=== PATIENT | female | born 1955 | race African-American/Black ===

== ENCOUNTER → 2020-11-28 10:01 | Outpatient (CLI) | payer SELFPAY ==
--- NOTE | ~2020-11-28 | MM_ITS ---
EXAMINATION: MM screening [facility] w marquez HISTORY: Screening mammogram TECHNIQUE: Craniocaudal and mediolateral oblique 3-D tomosynthesis images were obtained and synthetic 2-D images were generated. CAD analysis was submitted and interpreted. COMPARISON: No prior mammogram is available for comparison at this institution. BREAST PARENCHYMAL COMPOSITION: The breasts are heterogeneously dense, which may obscure small masses . FINDINGS: RIGHT BREAST: There is no evidence of suspicious mass, calcification, or architectural distortion to suggest malignancy. LEFT BREAST: There is focal asymmetry in the posterior third of the upper breast at the 12:00 locatio n. IMPRESSION: 1. Left breast focal asymmetry which may represent the patient's baseline however no comparison is cu rrently available. 2. Comparison with prior mammograms is necessary. BI-RADS Category 0: Incomplete: Needs comparison with prior mammograms. Reviewed, dictated and finalized at location A. IMPRESSION: 1. Left breast focal asymmetry which may represent the patient's baseline howev er no comparison is currently available. 2. Comparison with prior mammograms is necessary. BI-RADS Category 0: Incomplete: Needs comparison with prior mammograms.
--- NOTE | ~2020-11-28 | DEXA_ITS ---
Bone Density Report Name: Katharina Chinchilla Age: 65 Sex: Female Ethnicity: Black Date of : 1955 Indication: osteopenia; parental hip fracture; height loss; hysterectomy; postmenopausal Referring Provider: Bianca Bell Study: Bone densitometry was performed. Exam Date: November 28, 2020 Accession number: [id number] Bone Density: Region BMD T-score Z-score Classification AP Spine (L1-L4) 0.797 -2.3 -1.4 Osteopenia Femoral Neck (Left) 0.768 -0.7 -0.1 Normal Total Hip (Left) 0.860 -0.7 -0.2 Normal Femoral Neck (Right) 0.749 -0.9 -0.2 Normal Total Hip (Right) 0.818 -1.0 -0.5 Normal Total Hip Mean 0.839 -0.9 -0.4 Normal World Health Organization criteria for BMD impression classify patients as: Normal (T-score at or above -1.0), Osteopenia (T-score between -1.0 and -2.5), or Osteoporosis (T-score at or below -2.5). 10-year Fracture Risk(1): Major Osteoporotic Fracture 6.7% Hip Fracture 0.4% Reported Risk Factors: [place] (Black), Neck BMD=0.749, BMI=25.8, parental fracture, smoking (1) FRAX(R) Version 3.08. Fracture probability calculated for an untreated patient. Fracture probability may be lower if the patient has received treatment. Previous Exams: Region Exam Age BMD T-score BMD Change BMD Change Date g/cm2 vs Baseline vs Previous AP Spine(L1-L4) 11/28/2020 65 0.797 -2.3 -0.093* 0.004 08/06/2018 63 0.794 -2.3 -0.096* -0.096* 10/01/2013 58 0.890 -1.4 Total Hip(Left) 11/28/2020 65 0.860 -0.7 -0.150* -0.055* 08/06/2018 63 0.915 -0.2 -0.095* -0.095* 10/01/2013 58 1.010 0.6 Total Hip(Right) 11/28/2020 65 0.818 -1.0 -0.109* -0.026 08/06/2018 63 0.844 -0.8 -0.083* -0.083* 10/01/2013 58 0.927 -0.1 *Denotes significance at 95% confidence level, LSC for AP Spine = 0.022 g/cm2, LSC for Total Hip = 0.027 g/cm2 Clinical Information Provided by Patient: Parent has had a hip fracture Smokes Has used the following medications: Vitamin D, MTV Has the following medical conditions: Hysterectomy Patient maximum height was 67 Menopause Age: 42 No regular weight bearing exercise Drinks caffeinated beverages Onset of menses at age 16 Number of children 1 Impression: The patient has low bone mass, based on the Total Spine T-score. The patient has an estimated ten-year risk of hip fracture of 0.4% and an estimated ten-y
== END ==
PROVIDERS: Visit Provider Student in an Organized Health Care Education/Training Program
DX: Z12.31 Encounter for screening mammogram for malignant neoplasm of breast (principal); Z78.0 Asymptomatic menopausal state; M85.88 Other specified disorders of bone density and structure, other site; R92.8 Other abnormal and inconclusive findings on diagnostic imaging of breast
CPT/HCPCS: 77063; 77067; 77080

== ENCOUNTER → 2021-03-07 07:54 | Outpatient (CLI) | payer SELFPAY ==
--- NOTE | ~2021-03-07 | MM_ITS ---
EXAMINATION: MM diagnostic [facility] w marquez HISTORY: Left breast focal asymmetry on screening mammogram TECHNIQUE: Additional 3-D tomosynthesis images of the left breast were performed and synthetic 2-D im ages were generated. CAD analysis was submitted and interpreted. COMPARISON: 11/28/2020, 06/04/2018, 04/05/2015 BREAST PARENCHYMAL COMPOSITION: The breasts are heterogeneously dense, which may obscure small masses . FINDINGS: There is a return to baseline fibroglandular appearance with spot compression of the left b reast in the area questioned on screening mammogram. IMPRESSION: 1. No mammographic evidence of malignancy. 2. Recommend routine screening mammography in one year. BI-RADS Category 1: Negative Reviewed, dictated and finalized at location A.
== END ==
PROVIDERS: Visit Provider Student in an Organized Health Care Education/Training Program
DX: R92.8 Other abnormal and inconclusive findings on diagnostic imaging of breast (principal)
CPT/HCPCS: 77061; 77065; G0279

== ENCOUNTER 2022-07-27 00:24 | Day surgery (SDC) | payer MEDICARE, OTHER, SELFPAY ==
[2022-07-16 14:13] VITALS: BMI 25.2
--- NOTE | 2022-07-26 14:55 | PM.HPGS ---
History of Present Illness History of Present Illness Consent: Risks, benefits, and alternatives have been discussed and questions answered. Patient agrees to proceed with procedure. Chief complaint: neoplasm screening Narrative: Katahrina Chinchilla is a 67 year old female was referred for colon cancer screening. Twelve years ago she had a polyp removed PMFSH Past Medical History Medical History History of vaginal delivery Surgical History Surgical History History of hysterectomy History of tubal ligation Family History Family History Sibling Hypertension Patient's brother is in good health Patient's brother is Diabetes mellitus Family history of sickle cell anemia, Onset Age: 45 Father Family history of diabetes mellitus in first degree relative Diabetes mellitus Social History Social History Social History: Single Smoking packs per day: 0.5 Smoking cigarettes per day: 10.0 Years smoked: 40 Smoking pack-years: 20.00 Smoking status: Current some day smoker Tobacco type: cigarettes Second hand tobacco smoke exposure: No Alcohol intake: current Alcohol use details: SOCIAL DRINKER Substance use: never Substance use type: does not use Living arrangements: alone Occupation/Education: retired Gender identity (if verbalized by the patient): Female Sexual Orientation (if Verbalized by the Patient): Straight or Heterosexual Spiritual care concerns: No Meds Home Medications and Allergies Home Medications Medication Instructions Recorded Confirmed Type lxvbhoyzqxaa-vwynkmjb-ezralak-folic 1 tablet PO DAILY 07/24/19 07/16/22 History acid 400 mcg-vit K1 20 mcg tablet (One-A-Day Women's 50 Plus) ascorbic acid (vitamin C) 500 mg 500 mg PO DAILY 07/29/20 07/16/22 History chewable tablet cholecalciferol (vitamin D3) 25 25 mcg PO DAILY 07/29/20 07/16/22 History mcg (1,000 unit) capsule Allergies Allergy/AdvReac Type Severity Reaction Status Date / Time No Known Allergies Allergy Verified 07/27/22 08:57 Assessment and Plan Assessment and plan (1) Colon cancer screening: Code(s): Z12.11 - Encounter for screening for malignant neoplasm of colon Status: Acute Assessment and Plan: Colonoscopy with possible biopsy or polypectomy or cautery or injection of substances.
[2022-07-27 09:00] VITALS: BP 142/92; PULSE 102; RESP 18; TEMP 36.6; O2SAT 99
[2022-07-27] MEDS: LACTATED RINGERS 1,000 ML 150 ML IV CONT (09:10)
--- NOTE | 2022-07-27 09:11 | SUR.PREOP ---
DR HENDERSON MADE AWARE PT ATE OATMEAL AT 0600 ON 07/26/22 AND A [employer] SANDWICH AT 1400. PT TOOK BOWEL PREP INSTRUCTED AND HAD NOTHING TO EAT OR DRINK SINCE 1900 ON 07/26/22. PT'S BOWELS ARE LIQUID YELLOW. NO NEW ORDERS RECEIVED. DR HENDERSON TO SEE PT.
--- NOTE | 2022-07-27 09:28 | WPDANESEPPF ---
Anes - Initial Pre Proc Eval Procedure: Operation Date: 07/27/22 10:00 Proposed Procedures p Screening Colonoscopy - Nathan Melendez MD Date/Time: 07/27/22 09:28 Surgeon: Nathan Melendez MD Pre Op Diagnosis: neoplasm screening Patient Data Age: 67 Gender: F Height: 1.7 m Weight: 74.3 kg Last Vital Signs Temp 36.6 C 07/27/22 09:00 Pulse 102 H 07/27/22 09:00 Resp 18 07/27/22 09:00 BP 142/92 H 07/27/22 09:00 Pulse Ox 99 07/27/22 09:00 O2 Del Method Room Air 07/27/22 09:00 Allergies Allergy/AdvReac Type Severity Reaction Status Date / Time No Known Allergies Allergy Verified 07/27/22 08:57 Home Medications Medication Instructions Recorded Confirmed Type lmngpypksqnw-nloselfu-tcokbcj-folic 1 tablet PO DAILY 07/24/19 07/16/22 History acid 400 mcg-vit K1 20 mcg tablet (One-A-Day Women's 50 Plus) ascorbic acid (vitamin C) 500 mg 500 mg PO DAILY 07/29/20 07/16/22 History chewable tablet cholecalciferol (vitamin D3) 25 25 mcg PO DAILY 07/29/20 07/16/22 History mcg (1,000 unit) capsule Patient hx anesthesia problems: none Family hx anesthesia problems: none Results Review: All pre-operative results and documents have been reviewed as part of the pre-operative evaluation. [facility] Past Medical History Medical History History of vaginal delivery Hypertension Surgical History Surgical History History of hysterectomy History of tubal ligation Family History Family History Sibling Hypertension Patient's brother is in good health Patient's brother is Diabetes mellitus Family history of sickle cell anemia, Onset Age: 45 Father Family history of diabetes mellitus in first degree relative Diabetes mellitus Social History Social History Social History: Single Smoking packs per day: 0.5 Smoking cigarettes per day: 10.0 Years smoked: 40 Smoking pack-years: 20.00 Smoking status: Current some day smoker Tobacco type: cigarettes Second hand tobacco smoke exposure: No Alcohol intake: current Alcohol use details: SOCIAL DRINKER Substance use: never Substance use type: does not use Living arrangements: alone Occupation/Education: retired Gender identity (if verbalized by the patient): Female Sexual Orientation (if Verbalized by the Patient): Straight or Heterosexual Spiritual care concerns: No Anes - Eval Final PreProcedure Day of Procedure 07/27/22 09:28 Patient weight: normal Heart: regular rate and rhythm Lungs: decreased breath sounds Airway: Mallampati scale class II Neurological: alert and oriented Last oral intake: >/= 8 hours ASA classification: III Emergent: no Anesthetic plan: proceed Anesthesia type and monitoring: general GIVS and standard monitoring Results Review: All pre-operative results and documents have been reviewed as part of the pre-operative evaluation. Informed Consent: The patient's anesthetic plan and its attendant risks and benefits were discussed with the patient/family/POA. Questions were solicited and answers provided to the satisfaction of the patient/family/POA.
[2022-07-27 10:23] VITALS: BP 137/80; PULSE 26; RESP 26; O2SAT 100
[2022-07-27 10:33] VITALS: BP 139/83; PULSE 19; RESP 18; O2SAT 100
[2022-07-27 10:43] VITALS: BP 156/85; PULSE 22; RESP 22; O2SAT 100
== END 2022-07-27 10:51 | disposition home or self-care (01) ==
PROVIDERS: PCP Family Medicine; Visit Provider Internal Medicine Gastroenterology
PROC: 0DJD8ZZ Inspection of Lower Intestinal Tract, Via Natural or Artificial Opening Endoscopic (ICD-10-PCS; CPT 45378; principal; 2022-07-27 10:00)
DX: Z12.11 Encounter for screening for malignant neoplasm of colon (principal); D12.4 Benign neoplasm of descending colon; F17.210 Nicotine dependence, cigarettes, uncomplicated
CPT/HCPCS: 45380; 88305; J2704; J7120

== ENCOUNTER → 2023-01-23 13:06 | Outpatient (CLI) | payer MEDICARE, OTHER, SELFPAY ==
--- NOTE | ~2023-01-23 | MM_ITS ---
EXAMINATION: MM screening [facility] BI w marquez HISTORY: Screening mammogram TECHNIQUE: Craniocaudal and mediolateral oblique 3-D tomosynthesis images were obtained and synthetic 2-D images were generated. CAD analysis was submitted and interpreted. COMPARISON: 03/07/2021, 11/28/2020, 06/04/2018, 04/05/2015 BREAST PARENCHYMAL COMPOSITION: The breasts are heterogeneously dense, which may obscure small masses . FINDINGS: No suspicious mass, calcification, or architectural distortion are identified in either rom ast to suggest malignancy. There has been no suspicious interval change. IMPRESSION: 1. No mammographic evidence of malignancy. 2. Recommend routine screening mammography in one year. BI-RADS Category 1: Negative Reviewed, dictated and finalized at location A.
== END ==
PROVIDERS: PCP Registered Nurse; Visit Provider Registered Nurse
DX: Z12.31 Encounter for screening mammogram for malignant neoplasm of breast (principal)
CPT/HCPCS: 77063; 77067

== ENCOUNTER 2023-02-07 07:42 | Outpatient (CLI) | payer MEDICARE, OTHER, SELFPAY ==
--- NOTE | ~2023-02-07 | CT_ITS ---
EXAMINATION: CT lung screening DATE: 02/07/2023 08:00 INDICATION: Personal history of nicotine dependence TECHNIQUE: Computed tomography (CT) of the chest was performed without intravenous contrast. The dose -length product was 68.69 mGy-cm. Automated exposure control and iterative reconstruction technique w ere employed. COMPARISON: None FINDINGS: Small pericardial effusion. Heart size normal. No significant pleural or pericardial effusi on. No thoracic lymphadenopathy. There is atherosclerosis of the aorta. There are multiple liver cyst s, largest measuring 3 cm. Mild emphysema. No endobronchial lesions. No pneumothorax. No suspicious p ulmonary nodules or masses. IMPRESSION: 1. Lung-RADS category 1: Negative. Continue annual screening with noncontrast low-dose chest CT in 12 months. Reviewed, dictated and finalized at location L. IMPRESSION: 1. Lung-RADS category 1: Negative. Continue annual screening with noncontrast l ow-dose chest CT in 12 months.
== END 2023-02-07 07:43 | disposition home or self-care (01) ==
PROVIDERS: PCP Family Medicine; Visit Provider Physician Assistant
DX: Z12.2 Encounter for screening for malignant neoplasm of respiratory organs (principal); Z87.891 Personal history of nicotine dependence
CPT/HCPCS: 71271

== ENCOUNTER → 2023-02-13 12:04 | Outpatient (CLI) | payer MEDICARE, OTHER, SELFPAY ==
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
== END ==
PROVIDERS: PCP Family Medicine; Visit Provider Registered Nurse
DX: Z78.0 Asymptomatic menopausal state (principal); M85.89 Other specified disorders of bone density and structure, multiple sites
CPT/HCPCS: 77080

== ENCOUNTER 2023-05-13 16:17 | Emergency (ER) | payer MEDICARE, OTHER, SELFPAY ==
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
[2023-05-13 16:32] VITALS: BP 161/86; PULSE 106; RESP 18; TEMP 36.5; O2SAT 99
[2023-05-13 19:10] VITALS: BP 150/93; PULSE 98; RESP 14; TEMP 36.8; O2SAT 100
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
[2023-05-13 21:46] VITALS: BP 153/90; PULSE 87; RESP 17; O2SAT 96
== END 2023-05-13 21:47 | disposition home or self-care (01) ==
PROVIDERS: Emergency Provider Student in an Organized Health Care Education/Training Program; PCP Family Medicine
DX: S70.01XA Contusion of right hip, initial encounter (principal); I10 Essential (primary) hypertension; Z90.710 Acquired absence of both cervix and uterus; F17.210 Nicotine dependence, cigarettes, uncomplicated; V43.62XA Car passenger injured in collision with other type car in traffic accident, initial encounter
CPT/HCPCS: 73502; 99283

== ENCOUNTER 2023-06-19 08:00 | Outpatient (RCR) | payer MEDICARE, OTHER, SELFPAY ==
--- NOTE | 2023-05-29 09:09 | OPREHPOC ---
Outpatient Therapy Plan of Care This is a Multidisciplinary Plan of Care that may contain components documented by all disciplines (PT, OT, and ST.) PT Problem 1 PT Problem #1 Knowledge Deficit PT Goal 1 Goal 1* indep with HEP 2* pt demonstrate correct body mechanics and posture with lifting and simulated home tasks PT Problem 2 PT Problem #2 Pain PT Goal 1 Goal 1* pt report pain rating at worst of 4/10 2* pt report no tingling in her legs 3* self assessment Oswestry score of 12% limitation in activity level 4* pt report with sleeping, awaken due to pain 1x/ night PT Problem 3 PT Problem #3 Impaired Flexibility PT Goal 1 Goal increase ROM of hips to decrease strain on her spine and lumbar area: anterior hip-quad length with prone knee flexion 1* R 130' 2* L 130' prone hip extension 3* R 5' 4* L 5' no pain increase with supine hip ER 5* R 6* L PT Problem 4 PT Problem #4 Impaired Strength PT Goal 1 Goal increase trunk and hip strength, to improve stability and support to her lumbar spine 1* R and L prone hip extension x 20 reps 2* supine bridge x 20 reps with full extension of hips single leg standing x 20 seconds with good stability 3* R 4* L 5* bilateral UE box lift with 15# from floor/waist height
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
--- NOTE | 2023-06-19 08:09 | PCPTNOTE ---
pt was 10 min late for today's reeval appt;
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
== END 2023-06-19 12:17 | disposition home or self-care (01) ==
LOC: ANHPT 08:00
PROVIDERS: PCP Family Medicine; Visit Provider Family Medicine
DX: M62.838 Other muscle spasm (principal); S33.5XXD Sprain of ligaments of lumbar spine, subsequent encounter
CPT/HCPCS: 97110; 97140; 97161; 97530

== ENCOUNTER 2023-07-16 13:03 | Outpatient (CLI) | payer MEDICARE, OTHER, SELFPAY ==
--- NOTE | 2023-07-16 13:13 | ECHO_ITS ---
Patient Info Name: Katharina Chinchilla Age: 68 years : 1955 Gender: Female Ht: 65 in Wt: 165 lbs BSA: 1.87 m2 HR: 95 bpm BP: 140 / 80 mmHg Technical Quality: Good Exam Date: 07/16/2023 1:24 PM Exam Location: Echo Lab Patient Status: Outpatient Admit Date: 07/16/2023 Staff Ordering Physician: Kaylie Coughlin MD Attending Provider: Kaylie Coughlin MD Referring Physician: Ced FARIAS; Exam Type: CA echo doppler color flow Study Info Indications R01.1 - Cardiac murmur, unspecified Complete two-dimensional, color flow and Doppler transthoracic echocardiogram is performed. Summary 1. Complete two-dimensional, color flow and Doppler transthoracic echocardiogram is performed. 2. Left ventricular chamber dimension is normal. 3. Left ventricular systolic function is normal, estimated at 60-65%. 4. There is mild concentric increased left ventricular wall thickness. 5. The left ventricular diastolic function is grade I diastolic dysfunction. 6. E/e' 16 is elevated. 7. Left atrial chamber dimension is mildly enlarged. 8. The mitral valve has mildly calcified annulus. 9. There is mild tricuspid valve regurgitation. 10. No pulmonary hypertension, estimated pulmonary arterial systolic pressure is 34 mmHg. Left Ventricle E/e' 16 is elevated. Left ventricular chamber dimension is normal. Left ventricular systolic function is normal, estimated at 60-65%. There is mild concentric increased left ventricular wall thickness. The left ventricular diastolic function is grade I diastolic dysfunction. Right Ventricle Right ventricular systolic function is normal and with normal TAPSE 2.2 cm. Right ventricular chamber dimension is normal. Left Atria Left atrial chamber dimension is mildly enlarged. Right Atria Right atrial chamber dimension is normal. Aortic Valve The aortic valve is trileaflet. There is no aortic valve stenosis. There is no aortic valve regurgitation. Pulmonic Valve There is no pulmonic regurgitation. Mitral Valve The mitral valve has mildly calcified annulus. There is no mitral valve stenosis. There is no mitral valve regurgitation. Tricuspid Valve There is mild tricuspid valve regurgitation. No pulmonary hypertension, estimated pulmonary arterial systolic pressure is 34 mmHg. Pericardium/Pleural There is no pericardial effusion. Inferior Vena Cava Normal inferior vena cava with >50% collapse upon inspiration consistent with normal right atrial pressure, 5 mmHg. Aorta The aortic root size at the sinus of Valsalva is normal. Left Ventricular Outflow Tract Name Value Normal LVOT 2D LVOT Diameter 2.0 cm LVOT Doppler LVOT Peak Gradient 5 mmHg LVOT Mean Gradient 3 mmHg LVOT VTI 21 cm LVOT VTI/AV VTI Ratio 0.8 LVOT Stroke Volume 65 ml LVOT CO 8.7 l/min LVOT CI 4.7 l/min/m2 Pulmonic Valve Name Value Normal
== END 2023-07-16 13:04 | disposition home or self-care (01) ==
LOC: ANHCARD 13:04
PROVIDERS: PCP Family Medicine; Visit Provider Family Medicine
DX: R01.1 Cardiac murmur, unspecified (principal); I36.1 Nonrheumatic tricuspid (valve) insufficiency
CPT/HCPCS: 93306

== ENCOUNTER 2024-03-06 15:08 | Outpatient (CLI) | payer MEDICARE, OTHER, SELFPAY ==
--- NOTE | ~2024-03-06 | MM_ITS ---
EXAMINATION: MM screening baltazar BI w marquez HISTORY: Screening mammogram TECHNIQUE: Craniocaudal and mediolateral oblique 3-D tomosynthesis images were obtained and synthetic 2-D images were generated. CAD analysis was submitted and interpreted. COMPARISON: 01/23/2023, 03/07/2021, 11/28/2020 BREAST PARENCHYMAL COMPOSITION:Dense: The breasts are heterogeneously dense, which may obscure small masses. FINDINGS: Stable circumscribed outer, lower right breast mass. No suspicious mass, calcification, or architectural distortion are identified in either breast to suggest malignancy. There has been no kaela picious interval change. IMPRESSION: No mammographic evidence of malignancy. Recommend routine screening mammography in one year. BI-RADS Category 2: Benign finding(s). Reviewed, dictated and finalized at [facility].
== END 2024-03-06 15:09 | disposition home or self-care (01) ==
LOC: MICIMG 15:10
PROVIDERS: PCP Family Medicine; Visit Provider Nurse Practitioner Family
DX: Z12.31 Encounter for screening mammogram for malignant neoplasm of breast (principal)
CPT/HCPCS: 77063; 77067

== ENCOUNTER 2024-08-18 10:10 | Outpatient (CLI) | payer MEDICARE, OTHER, SELFPAY | END 2024-08-18 10:11 | disposition home or self-care (01) | PROVIDERS: PCP Family Medicine; Visit Provider Physician Assistant | DX: Z12.2 Encounter for screening for malignant neoplasm of respiratory organs (principal); Z87.891 Personal history of nicotine dependence | CPT/HCPCS: 71271 ==

== ENCOUNTER 2025-03-09 11:13 | Outpatient (CLI) | payer MEDICARE, OTHER, SELFPAY ==
--- NOTE | ~2025-03-09 | DEXA_ITS ---
Bone Density Report Name: CHILO LARRY Age: 69 Sex: Female Ethnicity: Black Date of : 1955 Indication: osteopenia; Referring Provider: PATRICK HURD Study: Bone densitometry was performed. Exam Date: March 09, 2025 Accession number: [id number] Bone Density: Region BMD T-score Z-score Classification AP Spine(L1-L4) 0.759 -2.6 -1.4 Osteoporosis Femoral Neck (Left) 0.728 -1.1 -0.2 Osteopenia Total Hip (Left) 0.778 -1.3 -0.6 Osteopenia Femoral Neck (Right) 0.708 -1.3 -0.4 Osteopenia Total Hip (Right) 0.738 -1.7 -0.8 Osteopenia Total Hip Mean 0.758 -1.5 -0.7 Osteopenia World Health Organization criteria for BMD impression classify patients as: Normal (T-score at or above -1.0), Osteopenia (T-score between -1.0 and -2.5), or Osteoporosis (T-score at or below -2.5). 10-year Fracture Risk: FRAX not reported because: Some T-score for Spine Total or Hip Total or Femoral Neck at or below -2.5 Previous Exams: -- Region Exam Age BMD T-score BMD Change BMD Change Date g/cm2 vs Baseline vs Previous -- AP Spine (L1-L4) 03/09/2025 69 0.759 -2.6 -14.8%* -2.4% 02/13/2023 67 0.778 -2.4 -12.6%* -2.5% 11/28/2020 65 0.797 -2.3 -10.4%* 0.5% 08/06/2018 63 0.794 -2.3 -10.8%* -10.8%* 10/01/2013 58 0.890 -1.4 Total Hip(Left) 03/09/2025 69 0.778 -1.3 -23.0%* -9.0%* 02/13/2023 67 0.855 -0.7 -15.4%* -0.6% 11/28/2020 65 0.860 -0.7 -14.9%* -6.0%* 08/06/2018 63 0.915 -0.2 -9.4%* -9.4%* 10/01/2013 58 1.010 0.6 Total Hip(Right) 03/09/2025 69 0.738 -1.7 -20.4%* -8.3%* 02/13/2023 67 0.804 -1.1 -13.2%* -1.7% 11/28/2020 65 0.818 -1.0 -11.8%* -3.1% 08/06/2018 63 0.844 -0.8 -9.0%* -9.0%* 10/01/2013 58 0.927 -0.1 -- *Denotes significance at 95% confidence level, LSC for AP Spine = 0.022 g/cm2, LSC for Total Hip = 0.027 g/cm2 Clinical Information Provided by Patient: Smokes Has used the following medications: Vitamin D, Calcium Patient maximum height was 66 Menopause Age: 42 No regular weight bearing exercise Drinks caffeinated beverages Onset of menses at age 16 Number of children 1 Impression: The patient has osteoporosis, based on the Total Spine T-score. The patient has risk factors, including: smoking. The BMD for the Total Hip(Left) decreased, changing by -9.0% since the last DXA exam. The BMD for the Total Hip(Right) decreased, changing by -8.3% since the last DXA exam. Discussion: INCREASED RISK OF FRACTURE. BONE DENSITY IS UNDESIRABLY LOW AT ONE OR MORE SKELETAL SITES, CONSISTENT WITH POSTMENOPAUSAL OSTEOPOROSIS. This patient's lowest T-score meets the World Health Organization's (WHO) criteria for osteoporosis at one or more sites (T-score -2.5 or below). In untreated patients, the risk of osteoporotic fracture increases approximately two-fold for each 1.0 SD decrease in T-score. Low bone density is not the only risk factor for fracture; also consider factors such as patient's age, frailty or poor health, risk of falling, risk of injury, previous osteoporotic fracture, family history of osteoporosis, cigarette smoking, low body weight, etc. Not everyone with low bone mineral density has osteoporosis; osteomalacia and other metabolic bone disorders should also be considered. Patients who have osteoporosis should be evaluated for specific diseases and conditions (secondary causes) that may cause or contribute to bone loss. The [place] [employer]ocrinologists (AACE) and National Osteoporosis Foundation (NOF) recommend pharmacologic intervention for all postmenopausal women whose T-score is in this range. The patient should follow a healthful lifestyle (good nutrition with adequate calcium and vitamin D, and appropriate weight-bearing exercise). Follow-Up: Consider a repeat BMD and Vertebral Fracture Assessment (VFA) exam in 2 years or sooner if medically necessary, to reassess this patient's status. Reported by: ANTONIA on 03/09/2025 11:47:00 AM. Reviewed, dictated and finalized at location A.
--- NOTE | ~2025-03-09 | MM_ITS ---
EXAMINATION: MM screening baltazar BI w marquez HISTORY: Screening TECHNIQUE: Craniocaudal and mediolateral oblique 3-D tomosynthesis images were obtained and synthetic 2-D images were generated. CAD analysis was submitted and interpreted. COMPARISON: 01/23/2023 BREAST PARENCHYMAL COMPOSITION: The breasts are heterogeneously dense, which may obscure small masses. FINDINGS: There is no evidence of suspicious mass, calcification, or architectural distortion to suggest malignancy. Asymmetry in the outer right breast, posterior depth, seen in the right cc projection. IMPRESSION: 1. Asymmetry in the outer right breast, posterior depth, seen in the right cc projection. The study is incomplete. A diagnostic mammogram and a diagnostic ultrasound are recommended. 2. No mammographic evidence for lesions in the left breast. BI-RADS 0: Incomplete-Need additional imaging evaluation. Reviewed, dictated and finalized at location Q. IMPRESSION: 1. Asymmetry in the outer right breast, posterior depth, seen in the right cc p rojection. The study is incomplete. A diagnostic mammogram and a diagnostic ult rasound are recommended. 2. No mammographic evidence for lesions in the left breast. BI-RADS 0: Incomplete-Need additional imaging evaluation.
== END 2025-03-09 11:14 | disposition home or self-care (01) ==
LOC: MICIMG 11:14
PROVIDERS: PCP Family Medicine; Visit Provider Nurse Practitioner Family
DX: M81.0 Age-related osteoporosis without current pathological fracture (principal); Z12.31 Encounter for screening mammogram for malignant neoplasm of breast; R92.8 Other abnormal and inconclusive findings on diagnostic imaging of breast; M86.8X0 Other osteomyelitis, multiple sites; Z78.0 Asymptomatic menopausal state
CPT/HCPCS: 77063; 77067; 77080

== ENCOUNTER 2025-04-12 10:43 | Outpatient (CLI) | payer MEDICARE, OTHER, SELFPAY ==
--- NOTE | ~2025-04-12 | MMUS_ITS ---
EXAMINATION: MM diagnostic baltazar RT w marquez, US breast RT complete HISTORY: Follow-up right breast asymmetry TECHNIQUE: Additional 3-D tomosynthesis images of the right breast were performed and synthetic 2-D images were generated. CAD analysis was submitted and interpreted. High resolution complete right breast ultrasound was performed. COMPARISON: Comparison to multiple prior studies sequentially, with oldest reviewed study dated 11/28/2020. BREAST PARENCHYMAL COMPOSITION: Dense: The breasts are heterogeneously dense, which may obscure small masses FINDINGS: MAMMOGRAPHIC FINDINGS: There is a circumscribed low-density mass lower outer quadrant of the right breast partially obscured by fibroglandular tissue. No suspicious calcifications or architectural distortion. ULTRASOUND: Complete US of all 4 quadrants of the right breast/s and retroareolar region was reviewed. At 6:00, 3 cm from the nipple there is a 5 mm cyst. At 8:00, 7 cm from the nipple there is a complex partially cystic vascular mass with antiparallel configuration measuring 7 x 7 x 6 mm. There is posterior acoustic enhancement. IMPRESSION: 1. Complex partially cystic and tight parallel oriented mass of the right breast at 8:00, 7 cm from the nipple measuring 7 mm. 2. Ultrasound-guided biopsy recommended. BI-RADS category 4, suspicious findings. Reviewed, dictated and finalized at location B. IMPRESSION: 1. Complex partially cystic and tight parallel oriented mass of the right breas t at 8:00, 7 cm from the nipple measuring 7 mm. 2. Ultrasound-guided biopsy recommended. BI-RADS category 4, suspicious findings.
--- OUTSIDE RECORDS SUMMARY | 2025-04-12 12:09 | XMS_ITS | Encounter Summary ---
Author Organization [facility] Address [address] [place] [address] Care Team Providers Care Tone Cabinet Assembler Name Role Phone Kaylie Coughlin MD Primary Care Provider + Encounter Details Date Type Department Care Team (Late st Contact Info) Description 11/30/2019 Lab Requisition [facility] D[facility] [address] [place] [address] Apolonia Cramer MD [address] [facility] [address] [place] [address] Social History Tobacco Use Types Packs/Day Years Used Date Smoking Tobacco: Never Assessed Comments Unknown Sex and Gender Information Value Date Recorded Sex Assigned at Not on file Legal Sex Female 6:07 AM [employer] Gender Identity Not on file Sexual Orientation Not on file documented as of this encounter Plan of Treatment Not on file documented as of this encounter Procedures Procedure Name Priority Date/Time Associated Diagnosis Comments DERMATOPATHOLOGY Routine 11/26/2019 12:0 0 AM CDT documented in this encounter Results * DERMATOPATHOLOGY (11/26/2019 12:00 AM CDT) Case Report Dermatopathology Report Case: [id number] Authorizing Provider: Apolonia Cramer MD Collected: 11/26/2019 12:00 AM Ordering Location: [facility] Received: 11/30/2019 01:59 PM Pathologist: Holly Smiley MD Specimen: Skin, left thigh 0 3:39 PM CDT DERMATOPATHOLOGY LABORATORY Final Diagnosis Specimen A. 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 0 3:39 PM CDT DERMATOPATHOLOGY LABORATORY Gross Description Specimen A: Received is one formalin filled container labeled with the patient's name and designated left thigh.The specimen consists of an ellipse measuring 02x07p6ml and is oriented with the notch at the 12 o'clock position labeled on the requisition as superior. The epidermal surface consists of a centrally located 9x7mm previous biopsy site. The 12 to 6 o'clock margin is inked green. The 6 o'clock to 12 o'clock margin is inked black. The 12 o'clock tip is submitted in cassette 1. The 6 o'clock tip is submitted in cassette 2. The remainder of the ellipse is serially sectioned and submitted in cassettes 3-4. Jar 0. 0 3:39 PM CDT DERMATOPATHOLOGY LABORATORY Microscopic Description Specimen A. SKIN, left thigh: There are fibroblasts and collagen bundles oriented parallel to the skin surface. There are elongated blood vessels, some of which are oriented perpendicular to the skin surface. No residual squamous cell carcinoma in situ is identified. 0 3:39 PM CDT DERMATOPATHOLOGY LABORATORY Disclaimer An external and internal positive and negative controls are appropriate for the histochemical, immunohistochemical and immunofluorescence stain(s) in this case (if any), except where stated explicitly. The performance characteristics of the stain(s) cited in this report were developed and its performance characteristic determined by the Dermatopathology Laboratory at [facility], directed by Dr. Shayne Bowen. These tests need not be, and therefore are not, approved by the [place] Food and Drug Administration. The tests are used for clinical purposes. Billing Codes Specimen Charges Stain Charges 27418 1 0 3:39 PM CDT DERMATOPATHOLOGY LABORATORY Embedded Images 0 3:39 PM CDT DERMATOPATHOLOGY LABORATORY Pathology/Cytolog y TISSUE SPECIMEN FROM SKIN / Unknown 11/26/2019 11/30/2019 1:59 PM CDT us Apolonia Cramer MD LAB - PATHOLOGY/CYTOLOGY ORD ERABLES Final Result DERMATOPATHOLOGY LABORATORY [facility] - Department of Dermatology [facility]/[address] [phone] documented in this encounter Visit Diagnoses Not on filedocumented in this encounter Care Teams Tone Cabinet Assembler Relationship Specialty Start Date End Date Kaylie Coughlin MD [address] [place] [id number] PCP - General 08/17/22 documented as of this encounter
--- OUTSIDE RECORDS SUMMARY | 2025-04-12 12:09 | XMS_ITS | Clinical Summary ---
Author Organization [facility] Address [address] [place] [phone] Care Team Providers Care Test Administrator Name Role Phone Kaylie Coughlin MD Primary Care Provider Allergies No known active allergies Medications amLODIPine (NORVASC) 10 mg tabletIndicatio ns:hypertension Take 1 tablet (10 mg total) by mouth every morning 5 Active aspirin 81 mg enteric coated tabletIndicatio ns:leg stents Take 1 tablet (81 mg total) by mouth every morning 5 Active clopidogreL (PLAVIX) 75 mg tablet Take 1 tablet (75 mg total) by mouth daily 30 tablet 11 5 09/11/19 26 Active Additional Information Patient taking differently:75 mg oralEvery morning, Indications: Leg stents, Informant: Self, Reported on 03/17/2025 acetaminophen (TYLENOL) 325 mg tablet Take 2 tablets (650 mg total) by mouth every 6 (six) hours as needed for pain Active oxyCODONE (ROXICODONE) 5 mg immediate release tabletIndicatio ns:Pain Take 1 tablet (5 mg total) by mouth every 4 (four) hours as needed for pain 12 tablet 5 Active calcitRIOL (ROCALTROL) 0.25 mcg capsule Take 1 capsule (0.25 mcg total) by mouth 2 (two) times a day for 7 days 14 capsule 5 Active calcium citrate (CALCITRATE) 950 mg (200 mg of elemental calcium) tablet Take 2 tablets (1,900 mg total) by mouth every 8 (eight) hours for 7 days, THEN 2 tablets (1,900 mg total) every 12 (twelve) hours for 7 days, THEN 2 tablets (1,900 mg total) daily for 7 days. 84 tablet Active Active Problems Problem Noted Date Diagnosed Date Hyperparathyroidism 12/17/2024 Parathyroid adenoma 12/16/2024 Overview (03/17/2025): DIAGNOSIS: Primary hyperparathyroidism PROCEDURE PERFORMED: (Shiv 03/02/25) Right superior parathyroidectomy Right inferior parathyroid exploration Atherosclerosis of [place] ar jennifer of both lower extremities with intermittent claudication 09/03/2024 Assessment & Plan (11/27/2024 12:29 PM CDT): Status post stent placement to the left external iliac and right SFA. She denies any symptoms of claudication, ischemic rest pain to her lower extremities. Necrosis to right 5th toe is improving. Plan: Continue ongoing works factor modifications. -continue dual antiplatelet therapy. - patient already has a scheduled follow-up in January With a lower extremity arterial duplex. Recommend patient to keep this appointment. Assessment & Plan (10/22/2024 11:35 AM CDT): Continue aspirin and Plavix continue daily activity regimen that involves walking. Continue keeping the right 5th toe clean follow-up in 3 months for routine surveillance with aortic duplex of both lower extremities. Assessment & Plan (09/25/2024 11:55 AM CDT): Impression: Patient underwent stent placement to the right SFA and left external iliac artery. Patient's right lower extremity is maximally revascularized. Symptoms of claudication to bilateral lower extremity has resolved. She complains of pain to the right 5th toe. Right 5th toe is necrotic with no drainage or odor noted. Bilateral lower extremities are warm, well perfused. Plan: I had a long discussion with the patient of allowing time to heal of the left 5th toe however remains at risk of potentially losing her left 5th toe. If an amputation is required, she would potentially be referred to podiatry for amputation. She states that was seeing a tank truck driver who she does not want to return to him. Patient can be referred to another tank truck driver if amputation is recommended. -Patient to continue aspirin and Plavix. -Patient to follow-up in 4 weeks for re-evaluation with new baseline lower extremity arterial duplex. Encouraged patient to make a sooner appointment if she develops any symptoms of claudication, ischemic rest pain or if necrotic toe worsens. Patient voices understanding. Peripheral vascular disease, unspecified 025 Assessment & Plan (09/02/2024 2:46 PM CDT): Life-limiting claudication borderline ischemic rest pain to the right lower extremity with severe occlusive disease on arterial Doppler. Moderate occlusive disease of the left lower extremity however at this time the claudication is manageable. Risks benefits alternatives to right lower extremity angiography were discussed. She wished proceed. Continue ASA, recommend statin therapy. Primary hypertension 09/02/2024 Assessment & Plan (11/27/2024 12:28 PM CDT): Chronic. Continue amlodipine Assessment & Plan (09/25/2024 11:56 AM CDT): Impression: Chronic and stable Plan: Continue amlodipine Assessment & Plan (09/02/2024 2:46 PM CDT): Stable continue amlodipine Encounters Date Type Department Care Team Description 03/17/2025 11:00 AM CDT Office Visit [facility] Medicine Otolaryngology Head-Neck Division [address] [place] [phone] Jorge Luis Chaney MD Parathyroid adenoma (Primary Dx) 03/17/2025 10:15 AM CDT Lab [facility] - Lab Collection [address] [place] [id number] Parathyroid adenoma 03/16/2025 Orders Only [facility] Medicine Otolaryngology Head-Neck Division [address] [place] [phone] Jorge Luis Chaney MD Parathyroid adenoma (Primary Dx) 03/02/2025 11:15 AM CDT - 03/02/2025 2:05 PM CDT Surgery [facility] Operating Room [address] [place] [address] Jorge Luis Chaney MD PARATHYROIDECTOMY. 03/02/2025 10:36 AM CDT Anesthesia Event [facility] Operating Room [address] [place] [phone] Ric Diaz MD Ingold, Nicole Michelle, NP 03/02/2025 9:17 AM CDT - 03/02/2025 2:12 PM CDT Hospital Encounter [facility] Operating Room [address] [place] [address] Jorge Luis Chaney MD Hyperparathyroidism Discharge Disposition: Discharge to home or self care 01/27/2025 1:45 PM CDT Office Visit [facility] Vascular and Vein Surgery [address] [place] [phone] Marissa Ahmadi PA Peripheral vascular disease, unspecified (Primary Dx); Smoker; Primary hypertension 01/27/2025 Orders Only [facility] Vascular and Vein Surgery [address] [place] [phone] Matt Pacheco MD Atherosclerosis of king island artery of both lower extremities with intermittent claudication (Primary Dx); Aftercare following surgery of the circulatory system 01/26/2025 9:46 AM CDT - 01/26/2025 11:59 PM CDT Hospital Encounter [facility] Medical Office Building [address] [place] [phone] Atherosclerosis of king [place] artery of both lower extremities with intermittent claudication Discharge Disposition: Discharge to home or self care 01/26/2025 9:46 AM CDT - 01/26/2025 11:59 PM CDT Hospital Encounter [facility] Medical Office Building [address] [place] [phone] Aftercare following surgery of the circulatory system Discharge Disposition: Discharge to home or self care 01/26/2025 9:46 AM CDT - 01/26/2025 11:59 PM CDT Hospital Encounter [facility] Medical Office Building [address] [place] [phone] Aftercare following surgery of the circulatory system Discharge Disposition: Discharge to home or self care from Last 3 Months Immunizations Immunization Administration Dates Next Due ZOSTER Recombinant 06/29/2024,04/27/2024 Surgical History Surgery Date Site/Laterality Comments CARDIAC CATHETERIZATION 09/10/2024 Bilateral Procedure: BILATERAL LOWER EXTREMITY ANGIOGRAM WITH LEFT GROIN ACCESS; Surgeon: Matt Pacheco MD; Location: [facility] CARDIAC SENIOR NET APPLICATION DEVELOPER; Service: Vascular; Laterality: Bilateral; Medical devices from this surgery are in the Medical Devices section. CARDIAC CATHETERIZATION 09/10/2024 N/A Procedure: AORTOGRAM ABDOMINAL S&I 92402; Surgeon: Matt Pacheco MD; Location: [facility] CARDIAC SENIOR NET APPLICATION DEVELOPER; Service: Vascular; Laterality: N/A; Medical devices from this surgery are in the Medical Devices section. CARDIAC CATHETERIZATION 09/10/2024 N/A Procedure: VIRTUAL CUSTOMER ASSISTANT STENT ILIAC, UNILATERAL, FIRST VESSEL 24820; Surgeon: Matt Pacheco MD; Location: [facility] CARDIAC SENIOR NET APPLICATION DEVELOPER; Service: Vascular; Laterality: N/A; Medical devices from this surgery are in the Medical Devices section. CARDIAC CATHETERIZATION 09/10/2024 N/A Procedure: VIRTUAL CUSTOMER ASSISTANT STENT FEM-POP, UNILATERAL, FIRST VESSEL 23250; Surgeon: Matt Pacheco MD; Location: [facility] CARDIAC SENIOR NET APPLICATION DEVELOPER; Service: Vascular; Laterality: N/A; Medical devices from this surgery are in the Medical Devices section. TOE SURGERY Bilateral 10-20 years ago PARATHYROIDECTOMY 03/02/2025 Neck/N/A Procedure: PARATHYROIDECTOMY.; Surgeon: Jorge Luis Chaney MD; Location: [facility] OR POD 5; Service: Otolaryngology; Laterality: N/A; Medical History Medical History Date Comments Hypertension Family History Medical History Relation Name Comments No Known Problems Brother No Known Problems Father No Known Problems Father's Brother No Known Problems Father's Sister No Known Problems Maternal Grandfather No Known Problems Maternal Grandmother No Known Problems Mother No Known Problems Mother's Brother No Known Problems Mother's Sister No Known Problems Other No Known Problems Paternal Grandfather No Known Problems Paternal Grandmother No Known Problems Sister Anesthesia problems Neg Hx Relation Name Status Comments Brother Father Father's Brother Father's Sister Maternal Grandfather Maternal Grandmother Mother Mother's Brother Mother's Sister Other Paternal Grandfather Paternal Grandmother Sister Social History Tobacco Use Types Packs/Day Years Used Date Smoking Tobacco: Every Day Cigarettes Smokeless Tobacco: Never Tobacco Cessation:Ready to Q uit: Not Asked; Counseling Given: Not Answered Alcohol Use Standard Drinks/Week Comments Not Currently 0 (1 standard drink = 0.6 oz pur e alcohol) AUDIT-C Answer Date Recorded Q1: How often do you have a drink containing alcohol? Never 03/02/2025 Q2: How many drinks containi ng alcohol do you have on a typical day when you are drinking? Patient does not drink Q3: How often do you have si x or more drinks on one occasion? Never 03/02/2025 Personal Safety Answer Date Recorded Have you ever been in or are you currently in a harmful physical or emotional relationship or is someone making you feel afraid or unsafe? 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 Gender Identity Not on file Sexual Orientation Not on file Obstetrics History Last Filed Vital Signs Vital Sign Reading Time Taken Comments Blood Pressure 148/85 03/02/2025 1:00 PM CDT Pulse 81 03/02/2025 1:10 PM CDT Temperature 36.5 C (97.7 F) 03/02/2025 12:40 PM CDT Respiratory Rate 14 03/02/2025 1:10 PM CDT Oxygen Saturation 98% 03/02/2025 1:10 PM CDT Inhaled Oxygen Concentration - - Weight 74.4 kg (164 lb) 03/17/2025 10:32 AM CDT Height 170.2 cm (5' 7) 02/04/2025 12:00 PM CDT Body Mass Index 25.69 02/04/2025 12:00 PM CDT Plan of Treatment Health Maintenance Due Date Last Done Comments Colon Cancer Screening-Colonoscopy 1955 Depression Screening 1955 Hepatitis C Screening 1955 Osteoporosis Screening-Bone Density Scan 1955 DTaP/Tdap/Td Vaccine (1 - Tdap) 1968 Hepatitis B Screening 1975 Pneumococcal vaccine 65+ (1 of 2 - PCV) 1976 Breast Cancer Screening-Mammogram 04/03/2018 017, 04/03/2016 Well Visit 65+ 2022 Covid-19 Vaccine ( season) 2025 06/20/2021, 10/11/2020, 09/19/2020 Influenza Vaccine (#1) 2025 Fall Risk Assessment 03/02/2026 03/02/2025 Zoster Vaccine Completed 06/29/2024, 04/27/2024 Medical Devices Implanted Type Area Housing Project Manager Device Identifier Shelf Expiration Date Model / Serial / Lot Khalil Vascular System Closure Repair Femoral Artery Suture Mediated Perclose Prostyle 73802-16 - [id number] Implanted:Qty: 1 on 09/10/2024 by Matt Pacheco MD at [facility] [employer] 07/17/2026 [id number] / / [id number] [employer] Zilver Ptx 6mm 140mm 125cm Otw Drug Elute Delivery System [id number] - [id number] Implanted:Qty: 1 on 09/10/2024 by Matt Pacheco MD at [facility] [id number] 02/23/2026 [id number] / / [id number] [employer] Zilver Ptx 6mm 140mm 125cm Otw Drug Elute Delivery System [id number] - [id number] Implanted:Qty: 1 on 09/10/2024 by Matt Pacheco MD at [facility] [id number] 02/23/2026 [id number] / / [id number] [employer] Zilver Ptx 6mm 120mm 125cm Drug Elute Otw Delivery System [id number] - [id number] Implanted:Qty: 1 on 09/10/2024 by Matt Pacheco MD at [facility] [id number] 06/08/2026 [id number] 82 / / [id number] [employer] Viabahn Od7 Mm L5 Cm L75 Cm Flexible Self Expand Radiopaque Stent Endoprosthesis Heparin Nitinol Eptfe Sterile Disposable Accepts .035 In Guidewire 8 Fr Introducer Sheath 5.6- Implanted:Qty: 1 on 09/10/2024 by Matt Pacheco MD at [facility] [employer] 09/27/2025 [id number] / [id number] / Procedures Procedure Name Priority Date/Time Associated Diagnosis Comments PTH Routine 03/17/2025 10:24 AM CDT Parathyroid adenoma PTH Routine 03/02/2025 12:25 PM CDT WI AN PROCEDURE PLACEHOLDER Routine 03/02/2025 12:23 PM CDT WI AN PROCEDURE PLACEHOLDER Routine 03/02/2025 12:08 PM CDT WI AN ELECTIVE ENDOTRACHEAL AIRWAY Routine 03/02/2025 12:08 PM CDT PTH Routine 03/02/2025 11:43 AM CDT SURGICAL PATHOLOGY Routine 03/02/2025 11 :29 AM CDT Hyperparathyroidism PARATHYROIDECTOMY. 03/02/2025 10 :40 AM CDT Hyperparathyroidism PTH Routine 03/02/2025 10:22 AM CDT VL US ARTERIAL DUPLEX LOWER EXTREMITY BILATERAL Schedule Routine, Read Routine (OP Routine) 01/26/2025 11:21 AM CDT Atherosclerosis of [place] artery of both lower extremities with intermittent claudication US FRANKO Schedule Routine, Read Routine (OP Routine) 01/26/2025 11:21 AM CDT Aftercare following surgery of the circulatory system US DUPLEX SCAN OF AORTA: INFERIOR VENA CAVA, ILIAC, LIMITED OR UNILATERAL Schedule Routine, Read Routine (OP Routine) 01/26/2025 11:20 AM CDT Aftercare following surgery of the circulatory system from Last 3 Months Results * (ABNORMAL) PTH (03/17/2025 10:24 AM CDT) PTH 64(H) 18 - 59 pg/mL Blood 03/17/2025 10:2 4 AM CDT 03/17/2025 11:20 AM CDT Jorge Luis Chaney MD LAB BLOOD ORDERABLES Final Result Performing Organization Address [facility] Co de Phone Number EDWAR ADAMS [facility] [place] [address] * (ABNORMAL) PTH (03/02/2025 12:25 PM CDT) PTH 14(L) 15 - 65 pg/mL Blood 03/02/2025 12:2 5 PM CDT 03/02/2025 12:53 PM CDT Nila ADAMS - 03/02/2025 1:20 PM CDT To be drawn in PACU Jorge Luis Chaney MD LAB BLOOD ORDERABLES Final Result Performing Organization Address [facility] de Phone Number EDWAR [facility] [place] [address] * WI AN PROCEDURE PLACEHOLDER (03/02/2025 12:23 PM CDT) Pearl Patel CRNA - 03/02/2025 12:23 PM CDT Pearl Nazario CRNA 03/02/2025 12:23 PM Peripheral IV Catheter Patient location: OR Staff: Placed by: Anesthesiologist: Ric Diaz MD Preprocedure prep: Prep solution: alcohol PPE: gloves Skin infiltrated with lidocaine 1%: yes PIV line: Laterality: right Site: hand Catheter size: 18 g Technique: anatomical landmarks, direct visualization and palpatation Procedure details: good blood return and occlusive dressing applied Number of attempts: 1 Assessment: Events: patient tolerated procedure well with no complications Additional comments: Atraumatic insertion. Ric Diaz MD ANESTHESIA ORDERABLES Final Result * WI AN ELECTIVE ENDOTRACHEAL AIRWAY, WI AN PROCEDURE PLACEHOLDER (03/02/2025 12:08 PM CDT) Pearl Patel CRNA - 03/02/2025 12:08 PM CDT Pearl Nazario CRNA 03/02/2025 12:09 PM Airway Patient location: OR Urgency: elective Indications for airway management: anesthesia and airway protection Difficult airway: no Staff: Placed by: ENGINEERING WRITER: Pearl Nazario CRNA Emergent airway documentation: Risks and benefits discussed: yes Consent obtained: yes Consent given by: patient Airway prep: Preoxygenated: yes Patient position: sniffing MILS maintained throughout: yes Mask difficulty assessment: 1 - vent by mask Sedation level during airway: GA Final airway details: Final airway type: endotracheal airway Tube type: NIM tube ETT size: 7.0 mm Cuffed: yes Technique used for successful ETT placement: video laryngoscopy Insertion site: oral Blade type: Neville Video blade type: Trinh Blade size: 4 Cormack-Lehane (video): grade I - full view of glottis Cuff volume: 7 mL Cuff inflated with: air ETT to lips: 22 cm Placement verified by: auscultation and CO2 detection Airway secured with: silk tape Number of attempts: 1 Additional comments: Atraumatic insertion. Dentition as pre-op. Continue to assess us Ric Diaz MD ANESTHESIA ORDERABLES Final Result * PTH (03/02/2025 11:43 AM CDT) PTH 23 15 - 65 pg/mL Comment:Intra-operative spec imen. Telephone report made to arias hdz RN on 03/02/2025 12:40:36 CDT by TI. Blood 03/02/2025 11:4 3 AM CDT 03/02/2025 12:29 PM CDT us Jorge Luis Chaney MD LAB BLOOD ORDERABLES Final Result EDWAR [facility] [place] [address] * Surgical pathology (03/02/2025 11:29 AM CDT) Tissue (Soft tissue biopsy) 03/02/2025 11:29 AM CDT Narrative PATHOLOGY [facility] - 03/04/2025 3:41 PM CDT EPIC results best viewed via link to PDF [facility] of Surgical Pathology [facility] [place] [address] Note to Patients: This report may contain a detailed description of human tissue sent by a health care provider to the laboratory for pathologic evaluation. The content of this report is essential for diagnosis and may provide important critical findings. This information may be unfamiliar to patients to review without a medical professional present. It is advised that the patient review this report in the presence of a health care provider who can answer questions and explain the details. SURGICAL PATHOLOGY REPORT FINAL Patient Name: KATHARINA CHINCHILLA Gender: F : 1955 (Age: 69) Address: [address] [place], [place] [phone] Hospital #: [id number] Taken:03/02/2025 Received:03/02/2025 Reported: 03/04/2025 Patient Type: [facility] Inpatient Service: Ear Nose Throat Location: [facility] OR POD 5 Physician(s): David Tate M.D. Diagnosis: Right inferior parathyroid candidate, excision (including AFR1): - Hypercellular parathyroid [facility]/03/04/2025 15:41 By this signature, I attest that the above diagnosis is based upon my personal examination of the slides(and/or other material indicated in the diagnosis). Luz Elena Terry MD, PhD Report Electronically Reviewed and Signed Out By Luz Elena Terry MD, PhD 03/04/2025 15:41:22 Intraoperative Consultation: Frozen Section Diagnosis AFR1: Right inferior parathyroid candidate - Hypercellular parathyroid, 1.19 g By Mackenzie Parker M.D., Leland Hughes MD PhD Gross Consultation A: Right inferior parathyroid candidate Received fresh, labeled with patient identifiers and right inferior parathyroid candidate is a 1.19 g, 1.9 x 1.3 x 0.9 cm putative parathyroid. Bisecting shows homogenous red-pink parenchyma. A authorization representative section is submitted as AFR1. By Mackenzie Parker M.D., Leland Hughes MD PhD I personally examined the relevant preparation(s) or a microscopic image of the relevant preparation(s) for the specimen(s) while the surgical procedure was still underway and rendered or confirmed the diagnosis(es) Report Electronically reviewed and Signed out by Leland Hughes MD PhD (A) History: The patient is a 69-year-old woman with hyperparathyroidism. Operative Procedure: parathyroidectomy Specimen(s) Received: A: Right inferior parathyroid candidate Gross Description: Received in formalin labeled with patient identifiers and right inferior parathyroid candidate is a single cassette with frozen section remnant labeled with the patient identifiers and AFR1. Also received in the same container is a free-floating segment of soft victor-pink tissue (1.7 x 1.2 x 0.4 cm). The specimen is submitted entirely as follows: AFR1 - Frozen section remnant A2 All remaining tissue Jar 0. bao203/02/2025 13:53 PA(s): KECIA Tabor (ASCP)CM By this signature, I attest that the above diagnosis is based upon my personal examination of the slides(and/or other material). Addenda/Procedures The performance characteristics of some immunohistochemical stains, fluorescence in-situ hybridization tests and immunophenotyping by flow cytometry cited in this report (if any) were determined by the Surgical Pathology and Flow Cytometry Departments at [facility] as part of an ongoing water quality manager program and in compliance with federally mandated regulations drawn from the Clinical Laboratory Improvement Act of 1988 (CLIA '88). Some of these tests rely on the use of analyte specific reagents and are subject to specific labeling requirements by the US Food and Drug Administration. Such diagnostic tests may only be performed in a facility that is certified by the Department of Health and Human Services as a high complexity laboratory under CLIA '88. The FDA has determined that such clearance or approval is not necessary. This test is used for clinical purposes. It should not be regarded as investigational or for research. Nevertheless, federal rules concerning the medical use of analyte specific reagents require that the following disclaimer be attached to the report: This test was developed and its performance characteristics determined by the Surgical Pathology and Flow Cytometry Departments of [facility]. It has not been cleared or approved by the U. S. Food and Drug Administration. IMAGES AND SCANNED DOCUMENTS, IF INCLUDED, ONLY VIEWABLE IN PDF VERSION OF REPORT Jorge Luis Chaney MD LAB PATHOLOGY ORDERABLES F inal Result PATHOLOGY [facility] IO [address] Floor [place], [place] [phone] * (ABNORMAL) PTH (03/02/2025 10:22 AM CDT) PTH 152(H) 15 - 65 pg/mL Blood 03/02/2025 10:2 2 AM CDT 03/02/2025 10:41 AM CDT Narrative EDWAR [facility] - 03/02/2025 11:11 AM CDT To be drawn in preop us Jorge Luis Chaney MD LAB BLOOD ORDERABLES Final Result Performing Organization Address [facility] Co de Phone Number EDWAR [facility] [place] [address] * US Arterial Duplex Lower Extremity Bilateral (01/26/2025 11:21 AM CDT) Anatomical Region Laterality Modality Vascular Bilateral Ultrasound 01/26/2025 10:4 1 AM CDT Narrative 01/28/2025 11:47 AM CDT Lower Extremity Arterial Duplex Report Patient Name: KATHARINA CHINCHILLA J : 1955 (69y 7m) Gender: F Study Date: 01/26/2025 10:41:40 AM Ht(Inch): Wt(Lb): BSA: Radio Communication Coordinator: Ruth Lawton Provider: MATT PACHECO Quality: Adequate Ref Provider: MATT PACHECO PROCEDURES: Arterial Report: A non-invasive vascular imaging study of the bilateral lower extremity arteries was performed using B-mode ultrasound, color flow, and spectral Doppler. A non-invasive vascular imaging study of the right lower extremity arteries and stent was performed using B-mode ultrasound, color flow, and spectral Doppler. INDICATIONS: Encounter for surgical aftercare following surgery on the circulatory system and I70.213 Atherosclerosis of [place] arteries of extremities with intermittent claudication, bilateral legs. HISTORY: The patient had a previous vascular surgery on S/P STENT RT SFA. COMPARISONS: The previous exam was completed on 10/13/24. MEASUREMENTS: Right Value Left Value Rt HOSPICE SPIRITUAL CARE COORDINATOR Prx PSV 133.00 cm/sec Lt HOSPICE SPIRITUAL CARE COORDINATOR Prx PSV 108.00 cm/sec Rt Profunda Prx PSV 165.00 cm/sec Lt Profunda Prx PSV 274.00 cm/sec Lt SFA Prx PSV 0.00 cm/sec Lt SFA Mid PSV 0.00 cm/sec Lt SFA Dst PSV 67.00 cm/sec Lt Pop Prx PSV 58.00 cm/sec Lt Pop Dst PSV 45.00 cm/sec STENTS: Right Value Location RT SFA PROX TO DIST Rt Stent Prx [place] PSV 95.00 cm/sec Rt Stent Prx PSV 130.00 cm/sec Rt Stent Mid PSV 74.00 cm/sec Rt Stent Dst PSV 92.00 cm/sec Rt Stent Dst [place] PSV 50.00 cm/sec FINDINGS: Right: STENT PICTURES LABELED LEFT BUT ARE RIGHT SFA STENT. Left: There is occlusion of the left proximal superficial femoral artery and mid superficial femoral artery. SFA RECONSTITUTES DISTALLY. Stent 1: The stent is located in the RIGHT SFA PROX TO DISTFAL. Patent lower extremity stent with no evidence of stenosis. CONCLUSION: 1. Right SFA stent is patent. Left SFA stent is occluded. ATTESTATION: I have reviewed and interpreted the pertinent images and measurements of this study. I attest to the conclusions in the final report that is provided above. Electronically Signed By: Hang Pacheco MD 01/28/2025 11:47:23 AM CDT Procedure Note Hang Pacheco MD - 01/28/2025 Lower Extremity Arterial Duplex Report Patient Name: KATHARINA CHINCHILLA J : 1955 (69y 7m) Gender: F Study Date: 01/26/2025 10:41:40 AM Ht(Inch): Wt(Lb): BSA: Radio Communication Coordinator: Ruth Lawton Provider: MATT PACHECO Quality: Adequate Ref Provider: MATT PACHECO PROCEDURES: Arterial Report: A non-invasive vascular imaging study of the bilaterallower extremity arteries was performed using B-mode ultrasound, color flow, and spectralDoppler. A non-invasive vascular imaging study of the right lower extremity arteriesand stent was performed using B-mode ultrasound, color flow, and spectral Doppler. 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 HISTORY: The patient had a previous vascular surgery on S/P STENT RT SFA. COMPARISONS: The previous exam was completed on 10/13/24. MEASUREMENTS: Right Value Left Value Rt HOSPICE SPIRITUAL CARE COORDINATOR Prx PSV 133.00 cm/sec Lt HOSPICE SPIRITUAL CARE COORDINATOR Prx PSV 108.00 cm/sec Rt Profunda Prx PSV 165.00 cm/sec Lt Profunda Prx PSV 274.00 cm/sec Lt SFA Prx PSV 0.00 cm/sec Lt SFA Mid PSV 0.00 cm/sec Lt SFA Dst PSV 67.00 cm/sec Lt Pop Prx PSV 58.00 cm/sec Lt Pop Dst PSV 45.00 cm/sec STENTS: Right Value Location RT SFA PROX TO DIST Rt Stent Prx [place] PSV 95.00 cm/sec Rt Stent Prx PSV 130.00 cm/sec Rt Stent Mid PSV 74.00 cm/sec Rt Stent Dst PSV 92.00 cm/sec Rt Stent Dst [place] PSV 50.00 cm/sec FINDINGS: Right: STENT PICTURES LABELED LEFT BUT ARE RIGHT SFA STENT. Left: There is occlusion of the left proximal superficial femoral arteryand mid superficial femoral artery. SFA RECONSTITUTES DISTALLY. Stent 1: The stent is located in the RIGHT SFA PROX TO DISTFAL. Patentlower extremity stent with no evidence of stenosis. CONCLUSION: 1. Right SFA stent is patent. Left SFA stent is occluded. ATTESTATION: I have reviewed and interpreted the pertinent images and measurements ofthis study. I attest to the conclusions in the final report that is provided above. Electronically Signed By: Hang Pacheco MD 01/28/2025 11:47:23 AM CDT us Matt Pacheco MD IM US PROCEDURES Final Result * US FRANKO (01/26/2025 11:21 AM CDT) Anatomical Region Laterality Modality Vascular N/A Ultrasound 01/26/2025 10:0 8 AM CDT Narrative 01/28/2025 11:44 AM CDT Lower Extremity Arterial Doppler Report Patient Name: KATHARINA CHINCHILLAPalmira : 1955 Study Date: 01/26/2025 10:08:00 AM Gender: F Radio Communication Coordinator: RUTH GONZALES RVT Ref Provider: MATT PACHECO Quality: Adequate Order Provider: MATT PACHECO PROCEDURES: Arterial Report: Ankle - Brachial Index Doppler exam. INDICATIONS: Z48.812 Encounter for surgical aftercare following surgery on the circulatory system. HISTORY: History of prior intervention on S/P STNT LT EIA, RT FA 09/10/24. COMPARISONS: The previous exam was completed on 10/13/24. MEASUREMENTS: Right Value Left Value Rt Brachial Pressure 151 mmHg Lt Brachial Pressure 155 mmHg Rt VIRTUAL CUSTOMER ASSISTANT Pressure 111 mmHg Lt VIRTUAL CUSTOMER ASSISTANT Pressure 99 mmHg Rt DPA Pressure 118 mmHg Lt DPA Pressure 113 mmHg Rt PT FRANKO Resting 0.72 Lt PT FRANKO Resting 0.64 Rt DP FRANKO Resting 0.76 Lt DP FRANKO Resting 0.73 FINDINGS: Right Posterior Tibial Artery Analysis: The posterior tibial waveform is monophasic. Right Dorsalis Pedis Artery Analysis: The dorsalis pedis waveform is biphasic. Left Posterior Tibial Artery Analysis: The posterior tibial waveform is biphasic. Left Dorsalis Pedis Artery Analysis: The dorsalis pedis waveform is biphasic. - CONCLUSIONS: 1. 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 ATTESTATION: I have reviewed and interpreted the pertinent images and measurements of this study. I attest to the conclusions in the final report that is provided above. Electronically Signed By: Hang Pacheco MD 01/28/2025 11:44:03 AM CDT Procedure Note Hang Pacheco MD - 01/28/2025 Lower Extremity Arterial Doppler Report Patient Name: KATHARINA CHINCHILLA J : 1955 Study Date: 01/26/2025 10:08:00 AM Gender: F Radio Communication Coordinator: RUTH GONZALES RVT Ref Provider: MATT PACHECO Quality: Adequate Order Provider: MATT PACHECO PROCEDURES: Arterial Report: Ankle - Brachial Index Doppler exam. INDICATIONS: Z48.812 Encounter for surgical aftercare following surgery on thecirculatory system. HISTORY: History of prior intervention on S/P STNT LT EIA, RT FA 09/10/24. COMPARISONS: The previous exam was completed on 10/13/24. MEASUREMENTS: Right Value Left Value Rt Brachial Pressure 151 mmHg Lt Brachial Pressure 155 mmHg Rt VIRTUAL CUSTOMER ASSISTANT Pressure 111 mmHg Lt VIRTUAL CUSTOMER ASSISTANT Pressure 99 mmHg Rt DPA Pressure 118 mmHg Lt DPA Pressure 113 mmHg Rt PT FRANKO Resting 0.72 Lt PT RFANKO Resting 0.64 Rt DP FRANKO Resting 0.76 Lt DP FRANKO Resting 0.73 FINDINGS: Right Posterior Tibial Artery Analysis: The posterior tibial waveform is monophasic. Right Dorsalis Pedis Artery Analysis: The dorsalis pedis waveform is biphasic. Left Posterior Tibial Artery Analysis: The posterior tibial waveform is biphasic. Left Dorsalis Pedis Artery Analysis: The dorsalis pedis waveform is biphasic. - CONCLUSIONS: 1. Ankle-brachial index of 0.5-0.8 is consistent with claudication diseaseand moderate occlusive arterial disease in the bilateral lower extremities. ATTESTATION: I have reviewed and interpreted the pertinent images and measurements ofthis study. I attest to the conclusions in the final report that is provided above. Electronically Signed By: Hang Pacheco MD 01/28/2025 11:44:03 AM CDT us Matt Pacheco MD IMG US PROCEDURES Final Result * US Duplex Scan of Aorta; Inferior Vena Cava, Iliac, Limited or Unilateral (01/26/2025 11:20 AM CDT) Anatomical Region Laterality Modality Vascular Ultrasound 01/26/2025 10:2 4 AM CDT Narrative 01/28/2025 11:45 AM CDT Abdominal Aortic Duplex Ultrasound Report Patient Name: KATHARINA CHINCHILLA J : 1955 Study Date: 01/26/2025 10:24:38 AM Gender: F Radio Communication Coordinator: Ruth Lawton Provider: MATT PACHECO Quality: Adequate Order Provider: MATT PACHECO PROCEDURES: Arterial Report: Duplex ultrasound imaging of the abdominal aorta. INDICATIONS: Z48.812 Encounter for surgical aftercare following surgery on the circulatory system. HISTORY: S/P LT. EIA STENT09/10/24. COMPARISONS: The previous exam was completed on 10/13/24. MEASUREMENTS: Velocities Value Aorta Prx PSV 113.00 cm/sec Aorta Mid PSV 62.00 cm/sec Lt Com Iliac Prx PSV 94.00 cm/sec Lt Com Iliac Dst PSV 98.00 cm/sec FINDINGS: Study Quality: Adequate. Left External Iliac: PATENT STENT LEFT EIA 167, 167, 125. OUTFLOW ARTERY 205/20. CONCLUSIONS: 1. Findings suggest continued patency of the previously placed stent. ATTESTATION: I have reviewed and interpreted the pertinent images and measurements of this study. I attest to the conclusions in the final report that is provided above. Electronically Signed By: Hang Pacheco MD 01/28/2025 11:44:51 AM CDT Procedure Note Hang Pacheco MD - 01/28/2025 Abdominal Aortic Duplex Ultrasound Report Patient Name: KATHARINA CHINCHILLA J : 1955 Study Date: 01/26/2025 10:24:38 AM Gender: F Radio Communication Coordinator: Ruth Lawton Provider: MATT PACHECO Quality: Adequate Order Provider: MATT PACHECO PROCEDURES: Arterial Report: Duplex ultrasound imaging of the abdominal aorta. INDICATIONS: Z48.812 Encounter for surgical aftercare following surgery on thecirculatory system. HISTORY: S/P LT. EIA STENT09/10/24. COMPARISONS: The previous exam was completed on 10/13/24. MEASUREMENTS: Velocities Value Aorta Prx PSV 113.00 cm/sec Aorta Mid PSV 62.00 cm/sec Lt Com Iliac Prx PSV 94.00 cm/sec Lt Com Iliac Dst PSV 98.00 cm/sec FINDINGS: Study Quality: Adequate. Left External Iliac: PATENT STENT LEFT EIA 167, 167, 125. OUTFLOW ARTERY 205/20. CONCLUSIONS: 1. Findings suggest continued patency of the previously placed stent. ATTESTATION: I have reviewed and interpreted the pertinent images and measurements ofthis study. I attest to the conclusions in the final report that is provided above. Electronically Signed By: Hang Pacheco MD 01/28/2025 11:44:51 AM CDT Matt Pacheco MD [facility] PROCEDURES Final Result from Last 3 [place] [address] MEDICARE [facility] MEDICARE [employer] Care Teams Test Administrator Relationship Specialty Start Date End Date Kaylie Coughlin MD [address] [facility] [address] [place] [address] PCP - General Family Medicine 08/18/24
--- OUTSIDE RECORDS SUMMARY | 2025-04-12 12:09 | XMS_ITS | Encounter Summary ---
Author Organization [facility] Address [address] [place] [address] Care Team Providers Care Cutting Torch Operator Name Role Phone Kaylie Coughlin MD Primary Care Provider + Encounter Details Date Type Department Care Team (Late st Contact Info) Description 12/29/2019 Lab Requisition [facility] Lab [address] [place] [address] Apolonia Cramer MD [address] [facility] [address] [place] [address] Social History Tobacco Use Types Packs/Day Years Used Date Smoking Tobacco: Never Assessed Comments Unknown Sex and Gender Information Value Date Recorded Sex Assigned at Not on file 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 Gender Identity Not on file Sexual Orientation Not on file documented as of this encounter Plan of Treatment Not on file documented as of this encounter Procedures Procedure Name Priority Date/Time Associated Diagnosis Comments DERMATOPATHOLOGY Routine 12/28/2019 12:0 0 AM CDT documented in this encounter Results * DERMATOPATHOLOGY (12/28/2019 12:00 AM CDT) Case Report Dermatopathology Report Case: [id number] Authorizing Provider: Apolonia Cramer MD Collected: 12/28/2019 12:00 AM Ordering Location: [facility] Received: 12/29/2019 08:23 AM Pathologist: Tammie Pearson MD Specimen: Skin, back 0 5:16 PM CDT DERMATOPATHOLOGY LABORATORY Final Diagnosis Specimen A. SKIN, back: SUBACUTE SPONGIOTIC DERMATITIS (L30.8) (see microscopic description and comment) 0 5:16 PM CDT DERMATOPATHOLOGY LABORATORY at 1716 CDT Clinical History R?O ACD vs AD vs LE 0 5:16 PM CDT DERMATOPATHOLOGY LABORATORY Gross Description Specimen A: Received is one formalin filled container labeled with the patient's name and designated back. The specimen consists of a punch biopsy measuring 3x3x6 mm. Jar 0. 0 5:16 PM CDT DERMATOPATHOLOGY LABORATORY Microscopic Description Specimen A. SKIN, back: There is focal parakeratosis and spongiosis of the epidermis. In the dermis there is a mainly superficial perivascular lymphoid infiltrate. GMS stain is negative for fungus. COMMENT: These histological findings are consistent with an eczematous dermatitis. 0 5:16 PM CDT DERMATOPATHOLOGY LABORATORY Disclaimer An external and internal positive and negative controls are appropriate for the histochemical, immunohistochemical and immunofluorescence stain(s) in this case (if any), except where stated explicitly. The performance characteristics of the stain(s) cited in this report were developed and its performance characteristic determined by the Dermatopathology Laboratory at [facility], directed by Dr. Shayne Bowen. These tests need not be, and therefore are not, approved by the [place] Food and Drug Administration. The tests are used for clinical purposes. Billing Codes Specimen Charges Stain Charges 03348 1 51690 1 0 5:16 PM CDT DERMATOPATHOLOGY LABORATORY Embedded Images 0 5:16 PM CDT DERMATOPATHOLOGY LABORATORY Pathology/Cytolog y TISSUE SPECIMEN FROM SKIN / Unknown 12/28/2019 12/29/2019 8:23 AM CDT us Apolonia Cramer MD LAB - PATHOLOGY/CYTOLOGY ORD ERABLES Final Result DERMATOPATHOLOGY LABORATORY [facility] - Department of Dermatology [facility]/[address] [phone] documented in this encounter Visit Diagnoses Not on filedocumented in this encounter Care Teams Cutting Torch Operator Relationship Specialty Start Date End Date Kaylie Coughlin MD [address] [place] [address] PCP - General 08/17/22 documented as of this encounter
--- OUTSIDE RECORDS SUMMARY | 2025-04-12 12:09 | XMS_ITS | Clinical Summary ---
Author Organization [facility] Address [address] [facility] [place] [address] Care Team Providers Care Market Research Lead Name Role Phone Kaylie Coughlin MD Primary Care Provider + Source Comments [facility],non-owned Affiliates and Associated Physician Practices is amultiple site organization consisting of ambulatory clinics and hospital sitesin [place], [place], [place] and [place]. This disclosure is being madepursuant to the Care Everywhere program and may not contain all information available regarding this patient. 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 Gender Identity Not on file Sexual Orientation Not on file Plan of Treatment Health Maintenance Due Date Last Done Comments BONE DENSITY TESTING 1955 COLOGUARD (AGES 45-75) - COL ON CA SCREENING 1955 COLON MONITORING 1955 COLONOSCOPY - COLON CA SCREENING 1955 CT COLONOGRAPHY - COLON CA SCREENING 1955 Colorectal Cancer Screening 1955 FIT - COLON CA SCREENING 1955 FLEX SIG - COLON CA SCREENING 1955 LIPID TESTING 1955 MAMMOGRAM 1955 HEPATITIS C SCREENING 06/11/1975 DTAP/TDAP/TD VACCINES (1 - Tdap) 1976 PNEUMOCOCCAL VACCINE 50+ (1 of 1 - PCV) 2007 ZOSTER VACCINE (1 of 2) 2007 DEPRESSION SCREENING 06/17/2024 COVID-19 VACCINE (1 - 2023-2 5 season) 2025 INFLUENZA VACCINE (#1) 2025 Respiratory Syncytial Virus (RSV) Vaccine Pt: or over 60 yrs (1 - 1-dose 75+ series) 2032 HEPATITIS B VACCINE Aged Out No longe r eligible based on patient's age to complete this topic HIB VACCINE Aged Out No longer eligi ble based on patient's age to complete this topic HPV VACCINE Aged Out No longer eligi ble based on patient's age to complete this topic MENINGOCOCCAL (Group B) VACC INE SHARED DECISION-MAKING Aged Out No longer eligibl e based on patient's age to complete this topic MENINGOCOCCAL GROUPS A/C/Y/W VACCINE Aged Out No longer eligible b ased on patient's age to complete this topic Insurance [employer] Care Teams Market Research Lead Relationship Specialty Start Date End Date Kaylie Coughlin MD [address] [place] [address] PCP - General 08/17/22
--- OUTSIDE RECORDS SUMMARY | 2025-04-12 12:09 | XMS_ITS | Clinical Summary ---
Author Organization [facility] Address [address] [place] [address] Phone Care Team Providers Care Surveyor Name Role Phone Unavailable Primary Care Provider Unavailabl e Family History Medical History Relation Name Comments Breast Cancer Neg Hx Ovarian Cancer Neg Hx Social History Tobacco Use Types Packs/Day Years Used Date Smoking Tobacco: Never Assessed Comments Unknown Sex and Gender Information Value Date Recorded Sex Assigned at Not on file Legal Sex Female 5:13 PM CDT Gender Identity Not on file Sexual Orientation Not on file Plan of Treatment Health Maintenance Due Date Last Done Comments DTAP/TDAP/TD VACCINES (1 - Tdap) 1976 COLORECTAL SCREENING 2002 Colorectal Cancer Screening 2002 FIT-DNA Q 3 years 2002 FIT/FOBT Q 1 year 2002 Flex Sig/CT Colonography Q 5 years 2002 PNEUMOCOCCAL VACCINE 50+ YEA RS (1 of 1 - PCV) 2007 ZOSTER VACCINE (1 of 2) 2007 BREAST CANCER SCREENING 06/04/2019 06/04/20 18, 06/04/2018, 04/03/2017, Additional history exists OSTEOPOROSIS SCREENING 2022 INFLUENZA VACCINE (#1) 2025 RSV VACCINE (60+ or ) (1 - 1-dose 75+ series) 2032 Procedures Procedure Name Priority Date/Time Associated Diagnosis Comments MAMMO SCREEN BILAT W OR WO CAD Routine 04/03/2017 7:53 AM CDT Visit for screening mammogram from Last 3 Months or Most Recently Relevant to Health Maintenance Results * MAMMO SCREEN BILAT W OR WO CAD (04/03/2017 7:53 AM CDT) Anatomical Region Laterality Modality Breast Bilateral Mammography 04/03/2017 7:53 AM CDT Impressions 04/04/2017 1:38 PM CDT IMPRESSION: Stable screening mammogram. Recommend routine followup. OVERALL ASSESSMENT: BI-RADS 1 - Negative Dictated from: [facility] Narrative 04/04/2017 1:38 PM CDT BILATERAL SCREENING DIGITAL MAMMOGRAMS WITH COMPUTER ASSISTED DIAGNOSIS 04/03/2017 HISTORY: Annual screening study. Comparison is made to multiple prior mammograms dating back to 04/02/2013. FINDINGS: The breast parenchyma is heterogeneously dense. No new dominant masses, suspicious calcifications or areas of parenchymal asymmetry or distortion are identified. CAD was utilized. Procedure Note Rose Marie Quintana MD - 04/04/2017 BILATERAL SCREENING DIGITAL MAMMOGRAMS WITH COMPUTER ASSISTED DIAGNOSIS 04/03/2017 HISTORY: Annual screening study. Comparison is made to multiple prior mammograms dating back to 04/02/2013. FINDINGS: The breast parenchyma is heterogeneously dense. No new dominant masses, suspicious calcifications or areas of parenchymal asymmetry or distortion are identified. CAD was utilized. IMPRESSION: Stable screening mammogram. Recommend routine followup. OVERALL ASSESSMENT: BI-RADS 1 - Negative Dictated from: [facility] Carla Rosales MD MAMMO ORDERABLES Final R esult from Last 3 Months or Most Recently Relevant to Health Maintenance Insurance
--- OUTSIDE RECORDS SUMMARY | 2025-04-12 12:09 | XMS_ITS | Encounter Summary ---
Author Organization [facility] Address [address] [place] [address] Care Team Providers Care Paper Bag Inspector Name Role Phone Kaylie Coughlin MD Primary Care Provider + Encounter Details Date Type Department Care Team (Late st Contact Info) Description 10/23/2019 Lab Requisition [facility] D[facility] Lab [address] [facility] [place] [address] Apolonia Cramer MD [address] 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 Gender Identity Not on file Sexual Orientation Not on file documented as of this encounter Plan of Treatment Not on file documented as of this encounter Procedures Procedure Name Priority Date/Time Associated Diagnosis Comments DERMATOPATH TECHNICAL REPORT Routine 10/22/2019 12:00 AM CDT documented in this encounter Results * DERMATOPATH TECHNICAL REPORT (10/22/2019 12:00 AM CDT) Case Report Dermatopathology Report Case: [id number] Authorizing Provider: Apolonia Cramer MD Collected: 10/22/2019 12:00 AM Ordering Location: [facility] Lab Received: 10/23/2019 06:59 AM Pathologist: Peyton Bowen MD Specimen: Skin, left thigh 0 2:33 PM CDT DERMATOPATHOLOGY LABORATORY Clinical History VV vs SCC. [place] plaque with cutaneous horn. 0 2:33 PM CDT DERMATOPATHOLOGY LABORATORY Gross Description Specimen A: Received is one formalin filled container labeled with the patient's name and designated left thigh. The specimen consists of a shave measuring [id number], bisected. Jar 0. [facility] Dermatopathology Laboratory performed the technical component only. 0 2:33 PM CDT DERMATOPATHOLOGY LABORATORY Embedded Images 0 2:33 PM CDT DERMATOPATHOLOGY LABORATORY DISCLAIMER An external and internal positive and negative controls are appropriate for the histochemical, immunohistochemical and immunofluorescence stain(s) in this case (if any), except where stated explicitly. The performance characteristics of the stain(s) cited in this report were developed and its performance characteristic determined by the Dermatopathology Laboratory at [facility], directed by Dr. Shayne Bowen. These tests need not be, and therefore are not, approved by the [place] Food and Drug Administration. The tests are used for clinical purposes. 0 2:33 PM CDT DERMATOPATHOLOGY LABORATORY at 1433 CDT Pathology/Cytolog y TISSUE SPECIMEN FROM SKIN / Unknown 10/22/2019 10/23/2019 6:59 AM CDT Apolonia Cramer MD LAB - PATHOLOGY/CYTOLOGY ORD ERABLES Final Result DERMATOPATHOLOGY LABORATORY [facility] - Department of Dermatology [address] [place] [address], [address] [place] [address], [facility] [phone] documented in this encounter Visit Diagnoses Not on filedocumented in this encounter Care Teams Paper Bag Inspector Relationship Specialty Start Date End Date Kaylie Coughlin MD [address] [place] [address] PCP - General 08/17/22 documented as of this encounter
--- OUTSIDE RECORDS SUMMARY | 2025-04-12 12:09 | XMS_ITS | Clinical Summary ---
Author Organization [facility] Address [facility] [place] [address] Care Team Providers Care Transportation Dispatcher Name Role Phone Unavailable Primary Care Provider Unavailabl e Social History Tobacco Use Types Packs/Day Years Used Date Smoking Tobacco: Never Assessed Comments Unknown Sex and Gender Information Value Date Recorded Sex Assigned at Not on file Legal Sex Female 4:42 PM CDT Gender Identity Not on file Sexual Orientation Not on file Plan of Treatment Health Maintenance Due Date Last Done Comments Colorectal Cancer Screening Colonoscopy (10 Years) 1955 Hepatitis C 1975 DTaP, Tdap and Td Vaccines ( 1 - Tdap) 1976 Mammogram Screening 1997 Pneumococcal Vaccine: 50+ Ye ars (1 of 1 - PCV) 2007 Zoster Vaccines (1 of 2) 2007 Dexa Scan (General) 2022 COVID-19 Vaccine ( - 2024-2 6 season) 2025 Influenza Adult (#1) 2025 RSV Immunization or 60+ Years (1 - 1-dose 75+ series) 2032 Hepatitis A Vaccines Aged Out No long er eligible based on patient's age to complete this topic Meningococcal B Vaccine Aged Out No l onger eligible based on patient's age to complete this topic Meningococcal Vaccine Aged Out No sonal josefina eligible based on patient's age to complete this topic RSV Immunizations Under 20 Months Aged Out No longer eligible based on patient's age to complete this topic
== END 2025-04-12 10:44 | disposition home or self-care (01) ==
LOC: ANHFOHIMG 10:44
PROVIDERS: PCP Family Medicine; Visit Provider Nurse Practitioner Family
DX: R92.8 Other abnormal and inconclusive findings on diagnostic imaging of breast (principal); N63.41 Unspecified lump in right breast, subareolar
CPT/HCPCS: 76641; 77061; 77065; G0279

== ENCOUNTER 2025-05-05 08:23 | Outpatient (CLI) | payer MEDICARE, OTHER, SELFPAY ==
--- NOTE | ~2025-05-05 | MMUS_ITS ---
PROCEDURE: US breast biopsy RT w image, MM post biopsy diagnostic RT CLINICAL HISTORY: 69-year-old female with a complex partially cystic right breast mass at 8:00, 7 cm FN who presents for ultrasound-guided core needle biopsy procedure. COMPARISON: 04/12/2025. Following informed consent including risks, benefits, and possible complications, the patient was brought to the ultrasound suite. A time-out procedure was performed. A preliminary ultrasound of the right breast was performed, redemonstrating complex mass at 8:00, 7 cm FN. The patient was prepped and draped in the usual sterile fashion. 1% lidocaine was instilled into the subcutaneous tissues. 1% lidocaine without epinephrine was injected into the deep tissues just inferior to the lesion. Approximately 15cc lidocaine was administered. A small skin alan was made. Multiple core samples were obtained with a 14-gauge multi pass biopsy needle. A post biopsy metal marker was placed at the biopsy site. Postprocedural mammogram of the right breast in craniocaudal and mediolateral projections reveal the post biopsy [place] butterfly marker in good position. The patient tolerated the procedure well and was without immediate postprocedural complications. IMPRESSION: Successful ultrasound guided biopsy of right breast mass. A post biopsy metal marker was placed at the biopsy site, which is seen on postprocedural mammogram. The patient tolerated the procedure well without immediate postprocedure complications. The patient was given postprocedural instructions and sent home in stable condition. Pathology report pending. Reviewed, dictated and finalized at location B. ESIS NURSE IMPRESSION: Successful ultrasound guided biopsy of right breast mass. A post bi opsy metal marker was placed at the biopsy site, which is seen on postprocedura l mammogram. The patient tolerated the procedure well without immediate postprocedure compli cations. The patient was given postprocedural instructions and sent home in sta ble condition. Pathology report pending.
--- NOTE | 2025-05-05 09:39 | S_PTH ---
PATIENT: Katharina Chinchilla LOC: [facility] U#:[id number] AGE/SX: 69/F ROOM: RE05/05/[address]: Rae Perkins MD : [id number] BED: DIS: 05/05/2025 SPEC #: [id number] RECD: 05/05/25 11:38 STATUS: [place] REJarek #: [id number] ELISA: 05/05/25 09:[address]: Rae Perkins DEPT: [facility] Surgical RECD BY: Chava Amezquita ENTERED: 05/05/25 11:38 SP TYPE: Surgical OTHR DR: Marshal Clarke MD Tissues: A - Breast Biopsy Procedures: Hematoxylin and Eosin Stain Gross and Microscopic Level 4
== END 2025-05-05 08:24 | disposition home or self-care (01) ==
PROVIDERS: PCP Family Medicine; Visit Provider Surgery
DX: R92.8 Other abnormal and inconclusive findings on diagnostic imaging of breast (principal); N60.01 Solitary cyst of right breast
CPT/HCPCS: 19083; 77065; 88305; A4648